=== PATIENT | female | born 1995 | race African-American/Black ===

== ENCOUNTER 2018-04-01 17:43 | Emergency (ER) | payer OTHER ==
[~2018-04-01] VITALS: Ht 162.6 cm; Wt 102.0 kg
[2018-04-01 17:52] VITALS: BP 146/94
[2018-04-01] MEDS ORDERED: HYDROXYZINE 25MG TABLET PO ONE (22:30)
== END 2018-04-01 22:52 | disposition home or self-care (01) ==
LOC: ER 17:43
DX: S60.562A Insect bite (nonvenomous) of left hand, initial encounter (principal); S60.561A Insect bite (nonvenomous) of right hand, initial encounter; S80.862A Insect bite (nonvenomous), left lower leg, initial encounter; S80.861A Insect bite (nonvenomous), right lower leg, initial encounter; J03.90 Acute tonsillitis, unspecified; F12.10 Cannabis abuse, uncomplicated; F17.210 Nicotine dependence, cigarettes, uncomplicated; W57.XXXA Bitten or stung by nonvenomous insect and other nonvenomous arthropods, initial encounter; Y93.89 Activity, other specified; Y92.89 Other specified places as the place of occurrence of the external cause; Y99.8 Other external cause status
CPT/HCPCS: 81025; 99283